=== PATIENT | male | born 2000 | race Asian ===

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

== ENCOUNTER → 2022-03-27 10:51 | Outpatient (CLI) | payer OTHER, SELFPAY | PROVIDERS: PCP Family Medicine; Visit Provider Student in an Organized Health Care Education/Training Program | DX: J02.9 Acute pharyngitis, unspecified (principal) | CPT/HCPCS: 87070 ==

== ENCOUNTER → 2022-03-31 16:24 | Outpatient (CLI) | payer OTHER, SELFPAY | PROVIDERS: PCP Family Medicine; Visit Provider Nurse Practitioner Family | DX: B96.89 Other specified bacterial agents as the cause of diseases classified elsewhere (principal); J03.80 Acute tonsillitis due to other specified organisms | CPT/HCPCS: 87070 ==

== ENCOUNTER → 2022-04-12 15:53 | Outpatient (CLI) | payer OTHER, SELFPAY | PROVIDERS: PCP Family Medicine; Visit Provider Nurse Practitioner Family | DX: J03.80 Acute tonsillitis due to other specified organisms (principal); B96.89 Other specified bacterial agents as the cause of diseases classified elsewhere | CPT/HCPCS: 87070 ==

== ENCOUNTER 2022-05-01 15:00 | Emergency (ER) | payer OTHER, SELFPAY ==
[2022-05-01 15:06] VITALS: BP 128/61; PULSE 98; RESP 19; TEMP 36.9; O2SAT 98; BMI 19.6
--- NOTE | 2022-05-01 15:20 | DI.CT.S_ITS ---
PROCEDURE: CT SOFT TISSUE NECK W CON INDICATIONS: c/f deep neck space infection, rt lymphadenopathy resistant TECHNIQUE: After the administration of intravenous contrast, 3.0 mm axial sections acquired from the sella to the aortic arch. 3 mm thick coronal and sagittal reformats were generated. For radiation dose reduction, the following was used: automated exposure control. COMPARISON: None. FINDINGS: Skull Base: The visualized intracranial contents, skull, and orbits are unremarkable. Visualized paranasal sinuses are clear. Pharynx and Larynx: Right peritonsillar abscess measures 1.2 x 0.9 x 2.1 cm is ill-defined and thick walled. No airway compromise. Lymph Nodes: Right-sided reactive deep cervical adenopathy measures up to 1.3 cm Vasculature: Unremarkable. Submandibular and Parotid Glands: Normal in size and attenuation. Thyroid: Unremarkable. No enlarged or calcified nodules. Bones: No acute fracture. No osteolytic or blastic lesion is evident. Normal bone mineralization. Lung Apices: The visualized lung apices are clear. IMPRESSION: 1. Right peritonsillar abscess measures 1.2 x 2.1 cm with associated edematous changes and reactive adenopathy Approved by: Bon Sharif M.D. on 05/01/2022 at 17:09
[2022-05-01 15:56] LABS: Add Manual Diff / Slide Review NO; Basophils Absolute Auto 0 /uL (0-100); Basophils Percent Auto 0.2 % (0-2); Eosinophils Absolute Auto 100 /uL (0-450); Eosinophils Percent Auto 0.6 % (2-4); Hematocrit 48.2 % (41-53); Hemoglobin 16.2 g/dL (13.5-17.5); Lymphocytes Absolute Auto 1300 /uL (1100-4500); Lymphocytes Percent Auto 9.4 % (25-40); Mean Corpuscular HGB Conc 33.7 % (30-36); Mean Corpuscular Hemoglobin 28.9 PG (26-34); Mean Corpuscular Volume 85.8 fL (80-100); Monocytes Absolute Auto 800 /uL (0-900); Neutrophils Absolute Auto 11400 /uL (1500-7000); Neutrophils Percent Auto 83.8 % (50-75); Platelet Count 179 X10^3/uL (150-400); Red Blood Cell Count 5.62 X10^6/uL (4.5-5.9); Red Cell Distribution Width 13.1 % (11.6-14.8); White Blood Cell Count 13.6 X10^3/uL (4.5-11.0)
[2022-05-01] MEDS: SODIUM CHLORIDE 0.9% 1,000 ML 1000 ML IV (15:56)
[2022-05-01] MEDS: KETOROLAC 30 MG/ML VIAL IM (15:57)
[2022-05-01] MEDS: DEXAMETHASONE 4 MG/ML VIAL 16 MG IV (15:57)
[2022-05-01 16:07] LABS: Alanine Aminotransferase 24 IU/L (<50); Albumin 4.7 g/dL (3.5-5.0); Albumin Globulin Ratio 1.3 (1.0-2.8); Alkaline Phosphatase 61 U/L (38-126); Aspartate Aminotransferase 33 IU/L (17-59); BUN Creatinine Ratio 17.5 (6-22); Bilirubin Total 1.7 mg/dL (0.2-1.3); Blood Urea Nitrogen 11 mg/dL (9-20); Calcium 9.4 mg/dL (8.4-10.2); Carbon Dioxide 26 mmol/L (22-32); Chloride 99 mmol/L (98-107); Estimated Glomerular Filt Rate > 60 mL/min (>60); Globulin 3.7 g/dL (1.7-4.1); Glucose 101 mg/dL (70-100); HEMOLYSIS 47 (0-50); Potassium 4.1 mmol/L (3.4-5.1); Sodium 136 mmol/L (137-145); Total Protein 8.4 g/dL (6.3-8.2)
[2022-05-01 16:09] VITALS: BP 130/77; PULSE 78; RESP 14; O2SAT 98
[2022-05-01 16:39] LABS: Procalcitonin 0.05 ng/mL (<0.5)
--- NOTE | 2022-05-01 16:51 | ED_ITS ---
HPI - URI/Sore Throat <Elise Stratton, [facility] - Last Filed: 05/01/22 20:23> General Chief Complaint: Upper Respiratory Symptoms Stated Complaint: infection in tonsils, worsening Time Seen by Provider: 05/01/22 15:20 Source: patient and family Mode of arrival: Family Vehicle History of Present Illness HPI Narrative: This is a 22-year-old male who presents to the emergency department with ongoing throat infection since March 27 and has completed 3 courses of antibiotics and returns today with worsening more than before, especially on the right tonsil. Patient has completed 1st a prescription of Augmentin that did not do anything starting on the , later returned to the walk-in clinic on 03/31/2022 and given ceftriaxone 1 g total IM, then started cefdinir 300 mg b.i.d. times 10 days, referral to ENT was submitted, patient had a follow-up appointment with ENT scheduled for May 18. Patient states that he saw his primary care provider for a follow-up 5 days later who told him that if he was improved then he could start the medication so they did. States that after this, his symptoms returned almost immediately and he was restarted on cefdinir which he has completed 10 days of Patient presents to the walk-in clinic and completed 5 days of this and saw his primary care provider for recheck, he states that the primary care provider told him to discontinue this if his symptoms improved so he did. He then goes to the walk-in clinic on 04/12/2022 and was prescribed 10 days of cefdinir. Related Data Home Medications Medication Instructions Recorded Confirmed fluticasone propionate 50 1 spray intranasal DAILY 07/06/17 04/12/22 mcg/actuation nasal spray,suspension Previous Rx's Medication Instructions Recorded cefdinir 300 mg capsule 300 mg PO BID #20 caps 04/12/22 benzocaine 15 mg-menthol 3.6 mg 1 liliana mucous membrane Q2-4H PRN 05/01/22 lozenges (Cepacol Sore Throat pain #16 ea (benzocaine-menthol)) clindamycin HCl 150 mg capsule 450 mg PO TID 10 days #90 caps 05/01/22 (Cleocin HCl) ibuprofen 600 mg tablet 600 mg PO Q6H PRN fever or pain 05/01/22 #30 tabs prednisone 20 mg tablet 20 mg PO DAILY 5 days #5 tabs 05/01/22 Allergies Allergy/AdvReac Type Severity Reaction Status Date / Time No Known Drug Allergies Allergy Verified 04/12/22 15:29 Review of Systems <DAYANA Toscano - Last Filed: 05/01/22 20:23> Review of Systems ROS Unobtainable: All systems reviewed & are unremarkable except as noted in HPI and below Patient History <DAYANA Toscano - Last Filed: 05/01/22 20:23> Medical History Immunizations up to date in pediatric patient Seasonal allergies Social History Smoking Status: Never smoker Smoking Status: Never smoker alcohol intake frequency: 0-2 drinks per day Substance Use Type: does not use Exam <DAYANA Toscano - Last Filed: 05/01/22 20:23> Narrative Exam Narrative: Reviewed vitals signs and nursing notes. General: cooperative, comfortable, in no acute distress, well groomed HEENT: symmetrical facial expressions, moist mucous membranes, posterior pharynx with 4+ lymphadenopathy bilaterally with greater swelling on right than left, uvula appears to be midline but pointing towards the left, tonsillar exudate especially on the right, mild odorous breath, anterior cervical lymphadenopathy, no submental tenderness, neck is supple, patient is able turn his head to the left and right without rigidity, no meningeal signs, no stridor Cardiovascular: Initially tachycardic with regular rhythm, no longer and now with regular rate and rhythm, no peripheral edema, warm extremities Respiratory: normal effort, able to speak in complete sentences, without wheezing, stridor, or abnormal breath sounds. No retractions or tachypnea. GI: abdomen soft, nontender to palpation, nondistended, without masses, rebound tenderness or exquisite tenderness with exam. MSK: moves all extremities, neurovascularly intact, no weakness, normal tone Skin: brisk capillary refill, without pallor or erythema Neuro: normal speech and cognition, A&O x3, ambulatory, clear speech Psych: mental status is grossly normal, congruent mood, normal affect, pleasant and cooperative Initial Vital Signs Initial Vital Signs: Vital Signs Temperature 98.5 F 05/01/22 15:06 Pulse Rate 98 H 05/01/22 15:06 Respiratory Rate 19 05/01/22 15:06 Blood Pressure 128/61 05/01/22 15:06 Pulse Oximetry 98 05/01/22 15:06 Oxygen Delivery Method 05/01/22 15:06 <Eduardo Gurrola DO - Last Filed: 05/02/22 04:24> Initial Vital Signs Initial Vital Signs: Vital Signs Temperature 98.5 F 05/01/22 15:06 Pulse Rate 98 H 05/01/22 15:06 Respiratory Rate 19 05/01/22 15:06 Blood Pressure 128/61 05/01/22 15:06 Pulse Oximetry 98 05/01/22 15:06 Oxygen Delivery Method 05/01/22 15:06 Course <DAYANA Toscano - Last Filed: 05/01/22 20:23> Orders Ordered: Discontinued Medications Benzocaine/Butamben/Tetracaine HCl (Tetracaine/Benzocaine/Butamben (Cetacaine) Bottle) 1 spray TOP NOW ONE Stop: 05/01/22 18:32 Last Admin: 05/01/22 19:23 Dose: 1 spray Documented By: AT Clindamycin HCl (Clindamycin 150 Mg Capsule) 450 mg PO NOW ONE Stop: 05/01/22 18:43 Last Admin: 05/01/22 19:23 Dose: 450 mg Documented By: AT Dexamethasone (Dexamethasone 4 Mg/Ml Vial) 16 mg IV NOW ONE Stop: 05/01/22 15:21 Last Admin: 05/01/22 15:57 Dose: 16 mg Documented By: ALYSSA Sodium Chloride (Normal Saline 0.9%) 1,000 mls @ 1,000 mls/hr IV BOLUS ONE Stop: 05/01/22 16:49 Last Infusion: 05/01/22 17:02 Dose: 0 mls/hr Documented By: Admin: 05/01/22 15:56 Dose: 1,000 mls/hr Documented By: ALYSSA Ampicillin Sodium/Sulbactam (Sodium 3 gm/ Sodium Chloride) 100 mls @ 200 mls/hr IV NOW ONE Stop: 05/01/22 16:52 Last Infusion: 05/01/22 17:57 Dose: 0 mls/hr Documented By: Admin: 05/01/22 17:01 Dose: 200 mls/hr Documented By: AT Ketorolac Tromethamine (Ketorolac 30 Mg/Ml Vial) 30 mg IM NOW ONE Stop: 05/01/22 15:21 Last Admin: 05/01/22 15:57 Dose: 15 mg Documented By: ALYSSA Vital Signs Vital signs: Vital Signs - 8 hr 05/01/22 15:06 05/01/22 16:09 05/01/22 17:30 Temperature 98.5 F Pulse Rate 98 H 78 104 H Respiratory Rate 19 14 16 Blood Pressure 128/61 130/77 116/69 Pulse Oximetry 98 98 Oxygen Delivery Method Room Air Room Air 05/01/22 18:05 05/01/22 19:25 Temperature Pulse Rate 100 H 88 Respiratory Rate 16 12 Blood Pressure 114/78 122/73 Pulse Oximetry 99 98 Oxygen Delivery Method Room Air <Eduardo Gurrola DO - Last Filed: 05/02/22 04:24> Orders Ordered: Discontinued Medications Benzocaine/Butamben/Tetracaine HCl (Tetracaine/Benzocaine/Butamben (Cetacaine) Bottle) 1 spray TOP NOW ONE Stop: 05/01/22 18:32 Last Admin: 05/01/22 19:23 Dose: 1 spray Documented By: AT Clindamycin HCl (Clindamycin 150 Mg Capsule) 450 mg PO NOW ONE Stop: 05/01/22 18:43 Last Admin: 05/01/22 19:23 Dose: 450 mg Documented By: AT Dexamethasone (Dexamethasone 4 Mg/Ml Vial) 16 mg IV NOW ONE Stop: 05/01/22 15:21 Last Admin: 05/01/22 15:57 Dose: 16 mg Documented By: ALYSSA Sodium Chloride (Normal Saline 0.9%) 1,000 mls @ 1,000 mls/hr IV BOLUS ONE Stop: 05/01/22 16:49 Last Infusion: 05/01/22 17:02 Dose: 0 mls/hr Documented By: Admin: 05/01/22 15:56 Dose: 1,000 mls/hr Documented By: ALYSSA Ampicillin Sodium/Sulbactam (Sodium 3 gm/ Sodium Chloride) 100 mls @ 200 mls/hr IV NOW ONE Stop: 05/01/22 16:52 Last Infusion: 02/26/23 17:57 Dose: 0 mls/hr Documented By: Admin: 05/01/22 17:01 Dose: 200 mls/hr Documented By: AT Ketorolac Tromethamine (Ketorolac 30 Mg/Ml Vial) 30 mg IM NOW ONE Stop: 05/01/22 15:21 Last Admin: 05/01/22 15:57 Dose: 15 mg Documented By: ALYSSA Vital Signs Vital signs: Vital Signs - 8 hr 05/01/22 15:06 05/01/22 16:09 05/01/22 17:30 Temperature 98.5 F Pulse Rate 98 H 78 104 H Respiratory Rate 19 14 16 Blood Pressure 128/61 130/77 116/69 Pulse Oximetry 98 98 Oxygen Delivery Method Room Air Room Air 05/01/22 18:05 05/01/22 19:25 Temperature Pulse Rate 100 H 88 Respiratory Rate 16 12 Blood Pressure 114/78 122/73 Pulse Oximetry 99 98 Oxygen Delivery Method Room Air MDM - URI/Sore Throat <NIRAJ ToscanoP - Last Filed: 05/01/22 20:23> Lab Data 05/01/22 15:39 05/01/22 15:39 Labs: Lab Results 05/01/22 05/01/22 05/01/22 Range/Units 15:39 15:39 15:39 WBC 13.6 H (4.5-11.0) X10^3/uL RBC 5.62 (4.5-5.9) X10^6/uL Hgb 16.2 (13.5-17.5) g/dL Hct 48.2 (41-53) % MCV 85.8 (80-100) fL MCH 28.9 (26-34) PG MCHC 33.7 (30-36) % RDW 13.1 (11.6-14.8) % Plt Count 179 (150-400) X10^3/uL Neut % (Auto) 83.8 H (50-75) % Lymph % (Auto) 9.4 L (25-40) % Jennings % (Auto) 6.0 (3-14) % Eos % (Auto) 0.6 L (2-4) % Baso % (Auto) 0.2 (0-2) % Neut # (Auto) 14137 H (6301-7394) /uL Lymph # (Auto) 1300 (4569-7948) /uL Jennings # (Auto) 800 (0-900) /uL Eos # (Auto) 100 (0-450) /uL Baso # (Auto) 0 (0-100) /uL Sodium (137-145) mmol/L Potassium (3.4-5.1) mmol/L Chloride (98-107) mmol/L Carbon Dioxide (22-32) mmol/L BUN (9-20) mg/dL Creatinine (0.66-1.25) mg/dL Estimated GFR (>60) mL/min BUN/Creatinine Ratio (6-22) Glucose (70-100) mg/dL Lactate 1.0 (0.7-2.1) mmol/L Calcium (8.4-10.2) mg/dL Total Bilirubin (0.2-1.3) mg/dL AST (17-59) IU/L ALT (<50) IU/L Alkaline Phosphatase (38-126) U/L Total Protein (6.3-8.2) g/dL Albumin (3.5-5.0) g/dL Globulin (1.7-4.1) g/dL Albumin/Globulin Ratio (1.0-2.8) Procalcitonin 0.05 (<0.5) ng/mL Monoscreen (Negative) 05/01/22 05/01/22 Range/Units 15:39 15:39 WBC (4.5-11.0) X10^3/uL RBC (4.5-5.9) X10^6/uL Hgb (13.5-17.5) g/dL Hct (41-53) % MCV (80-100) fL MCH (26-34) PG MCHC (30-36) % RDW (11.6-14.8) % Plt Count (150-400) X10^3/uL Neut % (Auto) (50-75) % Lymph % (Auto) (25-40) % Jennings % (Auto) (3-14) % Eos % (Auto) (2-4) % Baso % (Auto) (0-2) % Neut # (Auto) (5449-7272) /uL Lymph # (Auto) (5540-9472) /uL Jennings # (Auto) (0-900) /uL Eos # (Auto) (0-450) /uL Baso # (Auto) (0-100) /uL Sodium 136 L (137-145) mmol/L Potassium 4.1 (3.4-5.1) mmol/L Chloride 99 (98-107) mmol/L Carbon Dioxide 26 (22-32) mmol/L BUN 11 (9-20) mg/dL Creatinine 0.63 L (0.66-1.25) mg/dL Estimated GFR > 60 (>60) mL/min BUN/Creatinine Ratio 17.5 (6-22) Glucose 101 H (70-100) mg/dL Lactate (0.7-2.1) mmol/L Calcium 9.4 (8.4-10.2) mg/dL Total Bilirubin 1.7 H (0.2-1.3) mg/dL AST 33 (17-59) IU/L ALT 24 (<50) IU/L Alkaline Phosphatase 61 (38-126) U/L Total Protein 8.4 H (6.3-8.2) g/dL Albumin 4.7 (3.5-5.0) g/dL Globulin 3.7 (1.7-4.1) g/dL Albumin/Globulin Ratio 1.3 (1.0-2.8) Procalcitonin (<0.5) ng/mL Monoscreen Negative (Negative) Imaging Data CT soft tissue Neck: Radiologist's Impression: [address] [address] [address] Scan Report Signed Patient: Deangelo Sarmiento MR#: [id number] : 2000 Acct:[id number] Age/Sex: 22 / M Date of Service: 05/01/22 Loc: ED Accession Number: [id number] ?? Procedure: CT soft tissue neck w con Ordering Provider: Elise Stratton PROCEDURE:? CT SOFT TISSUE NECK W CON ? INDICATIONS:? c/f deep neck space infection, rt lymphadenopathy resistant ? TECHNIQUE:? After the administration of intravenous contrast, 3.0 mm axial sections acquired from the sella to the aortic arch.? 3 mm thick coronal and sagittal reformats were generated.? For radiation dose reduction, the following was used:? automated exposure control.? ? COMPARISON:? None. ? FINDINGS: ? Skull Base: The visualized intracranial contents, skull, and orbits are unremarkable.? Visualized paranasal sinuses are clear. ? Pharynx and Larynx:? Right peritonsillar abscess measures 1.2 x 0.9 x 2.1 cm is ill-defined and thick walled.? No airway compromise. ? Lymph Nodes:? Right-sided reactive deep cervical adenopathy measures up to 1.3 cm ? Vasculature:? Unremarkable. ? Submandibular and Parotid Glands:? Normal in size and attenuation. ? Thyroid:? Unremarkable.? No enlarged or calcified nodules. ? Bones:? No acute fracture.? No osteolytic or blastic lesion is evident. Normal bone mineralization. ? Lung Apices:? The visualized lung apices are clear. ? IMPRESSION: ? 1. Right peritonsillar abscess measures 1.2 x 2.1 cm with associated edematous changes and reactive adenopathy ? ? Approved by: Bon Sharif M.D. on 05/01/2022 at 17:09? MDM Narrative Medical decision making narrative: Chief Complaint: Worsening throat infection Independent historian: Patient and his father Differential diagnoses include but are not limited to: Bacterial pharyngitis, RPA, peritonsillar abscess, mono, Vladimir angina/parotid space infection deep neck space infection, I have independently reviewed the patient's vital signs and nursing notes as well as prior records if available. Pertinent lab findings reviewed: Leukocytosis of 13.6 with a left shift, normal creatinine, total bilirubin mildly elevated at 1.7 and 1 L of IV fluid was g iven, procalcitonin of 0.05, mono screen is negative, throat culture is pending Pertinent Imaging reviewed: CT soft tissue neck Course of care: Ordered lab work while patient was in triage, he has normal phonation, can tolerate his secretions however his tonsils are very large, uvula is hanging and sticking to them, there is exudate present, throat culture obtained and is pending, ordered ENT dose dexamethasone at 16 mg IV orally, also ordered for him fluid bolus, Toradol, CT soft tissue neck, he has full mobility of his neck without rigidity, meningeal signs, can turn his head from left to right IV fluid bolus ordered at 1550, ampicillin 3 g IV ordered when his lab work came back at 16:51, also gave him Toradol 15 mg IV, dexamethasone 16 mg given p.o., 1818 CT result came in showing right retropharyngeal abscess measuring 1.2 x 2.1 cm with associated edematous changes and reactive adenopathy which is consistent with his posterior pharynx exam and anterior cervical exam. The patient was seen by Dr. Gurrola as well as myself and will proceed with needle aspiration of the abscess after benzocaine/butamben/ tetracaine spray Procedure was completed by Dr. Gurrola with my assistance, no significant purulence drainage removed with needle aspiration, patient tolerated this well with Cetacaine spray and local injection of 1% lidocaine with epinephrine. No airway concerns at this time, patient is protecting his airway, he is able to swallow and manage his secretions, without stridor, he does have mild anterior cervical lymphadenopathy on the right. Patient feels much better than he did when he came in, states that the swelling has already gone down quite a bit. He did not swallow much if any blood, a suction during the procedure to avoid this. He is encouraged to follow-up with ENT bianca tomorrow for urgent follow-up. I will forward the note to Dr. Garrett from ENT. Encourage patient to return to the emergency department for any acute change or worsening, he is nontoxic appearing, his dad is here with him and offers good support. They will follow-up accordingly, since patient has been on cefdinir for his unless he has, opted to treat him with clindamycin 450 mg t.i. d. times 10 days. He was also given Cepacol lozenges and ibuprofen with prednisone 20 mg daily x5 days. Social considerations that may affect disposition: none Questions are addressed and there is agreement with the plan and for follow-up. Patient is appropriate for outpatient management. MIPS: This encounter doesn't have any diagnosis' associated with MIPS criteria. <Eduardo Gurrola, DO - Last Filed: 05/02/22 04:24> Lab Data Labs: Lab Results 05/01/22 05/01/22 05/01/22 Range/Units 15:39 15:39 15:39 WBC 13.6 H (4.5-11.0) X10^3/uL RBC 5.62 (4.5-5.9) X10^6/uL Hgb 16.2 (13.5-17.5) g/dL Hct 48.2 (41-53) % MCV 85.8 (80-100) fL MCH 28.9 (26-34) PG MCHC 33.7 (30-36) % RDW 13.1 (11.6-14.8) % Plt Count 179 (150-400) X10^3/uL Neut % (Auto) 83.8 H (50-75) % Lymph % (Auto) 9.4 L (25-40) % Jennings % (Auto) 6.0 (3-14) % Eos % (Auto) 0.6 L (2-4) % Baso % (Auto) 0.2 (0-2) % Neut # (Auto) 77182 H (1227-9845) /uL Lymph # (Auto) 1300 (7395-7458) /uL Jennings # (Auto) 800 (0-900) /uL Eos # (Auto) 100 (0-450) /uL Baso # (Auto) 0 (0-100) /uL Sodium (137-145) mmol/L Potassium (3.4-5.1) mmol/L Chloride (98-107) mmol/L Carbon Dioxide (22-32) mmol/L BUN (9-20) mg/dL Creatinine (0.66-1.25) mg/dL Estimated GFR (>60) mL/min BUN/Creatinine Ratio (6-22) Glucose (70-100) mg/dL Lactate 1.0 (0.7-2.1) mmol/L Calcium (8.4-10.2) mg/dL Total Bilirubin (0.2-1.3) mg/dL AST (17-59) IU/L ALT (<50) IU/L Alkaline Phosphatase (38-126) U/L Total Protein (6.3-8.2) g/dL Albumin (3.5-5.0) g/dL Globulin (1.7-4.1) g/dL Albumin/Globulin Ratio (1.0-2.8) Procalcitonin 0.05 (<0.5) ng/mL Monoscreen (Negative) 05/01/22 05/01/22 Range/Units 15:39 15:39 WBC (4.5-11.0) X10^3/uL RBC (4.5-5.9) X10^6/uL Hgb (13.5-17.5) g/dL Hct (41-53) % MCV (80-100) fL MCH (26-34) PG MCHC (30-36) % RDW (11.6-14.8) % Plt Count (150-400) X10^3/uL Neut % (Auto) (50-75) % Lymph % (Auto) (25-40) % Jennings % (Auto) (3-14) % Eos % (Auto) (2-4) % Baso % (Auto) (0-2) % Neut # (Auto) (3107-1200) /uL Lymph # (Auto) (0881-0939) /uL Jennings # (Auto) (0-900) /uL Eos # (Auto) (0-450) /uL Baso # (Auto) (0-100) /uL Sodium 136 L (137-145) mmol/L Potassium 4.1 (3.4-5.1) mmol/L Chloride 99 (98-107) mmol/L Carbon Dioxide 26 (22-32) mmol/L BUN 11 (9-20) mg/dL Creatinine 0.63 L (0.66-1.25) mg/dL Estimated GFR > 60 (>60) mL/min BUN/Creatinine Ratio 17.5 (6-22) Glucose 101 H (70-100) mg/dL Lactate (0.7-2.1) mmol/L Calcium 9.4 (8.4-10.2) mg/dL Total Bilirubin 1.7 H (0.2-1.3) mg/dL AST 33 (17-59) IU/L ALT 24 (<50) IU/L Alkaline Phosphatase 61 (38-126) U/L Total Protein 8.4 H (6.3-8.2) g/dL Albumin 4.7 (3.5-5.0) g/dL Globulin 3.7 (1.7-4.1) g/dL Albumin/Globulin Ratio 1.3 (1.0-2.8) Procalcitonin (<0.5) ng/mL Monoscreen Negative (Negative) Discharge Plan Departure Patient Disposition: Home Clinical Impression: Abscess, peritonsillar Instructions: Peritonsillar Abscess Activity Restrictions/Additional Instructions: *You have been diagnosed with a peritonsillar abscess measuring 1.2 x 2.1 cm with inflammation and related to this. Please take this antibiotic 3 times a day for 10 days and schedule urgent follow-up with Dr. Garrett from [facility]. I will send him this note. If he has difficulty breathing, swallowing, keeping anything down, please send him in for another evaluation. Thank you for trusting us with his care, thank you for coming in early, and I hope that this does not recur. Take ibuprofen 600 mg this will help swelling pain, to have some sort of food in her stomach with all medications so that you do not get an ulcer or feel nauseated related to this. We attempted drainage of this, have a culture pending of his throat, but no significant pus drainage came out of this abscess. *What to do: *Please continue to take your regular medications as directed. [ x] New medication prescriptions sent to your pharmacy: [ [facility]] (okay to pick this up tomorrow) [ ] New medication written as a paper prescription [ ] No new medications given *Please follow up with your primary care provider in 2-3 days, call for an shawn ointment. Let them know you were seen in the Emergency Department and that we asked that you be seen for follow-up. We will electronically transmit a record of today's note if your PCP is in our system *If you do not have a primary care provider please contact [phone] to establish care with one of the [facility] primary care providers. *Return to Emergency Department if you should have any new, worsening, or concerning symptoms, such as [fever greater than 101F, chills, worsening pain, persistent vomiting or other bothersome symptoms]. Prescriptions: New clindamycin HCl [Cleocin HCl] 150 mg capsule 450 mg PO TID 10 Days Qty: 90 0RF Cepacol Sore Throat (charlotte-men) 15-3.6 mg lozenge 1 liliana mucous membrane Q2-4H PRN (Reason: pain) Qty: 16 0RF prednisone 20 mg tablet 20 mg PO DAILY 5 Days Qty: 5 0RF ibuprofen 600 mg tablet 600 mg PO Q6H PRN (Reason: fever or pain) Qty: 30 0RF No Action fluticasone propionate 50 mcg/actuation spray,suspension 1 spray NASAL DAILY flu vacc [id number] 6mos up(PF) 60 mcg (15 mcg x 4)/0.5 mL suspension 0.5 ml IM ONCE Qty: 0.5 0RF cefdinir 300 mg capsule 300 mg PO BID Qty: 20 0RF Rx Instructions: Take one BID. consider probiotics Referrals: Ankush Garrett MD [Physician] - As soon as possible Riley Huerta MD [Primary Care Provider] - Stand Alone Forms: Patient Portal/API <Eduardo Gurrola DO - Last Filed: 05/02/22 04:24> Cosign ED Attending Cosignature Attestation: I was immediately available in the department for consultation. This documentation has been reviewed and I agree with assessment and plan. Supervised by Eduardo Gurrola DO
[2022-05-01] MEDS: AMPICILLIN/SULBACTAM 3 GM 3 GM in SODIUM CHLORIDE 0.9% 100 ML IV (17:01)
[2022-05-01 17:09] LABS: Monotest Negative (Negative)
[2022-05-01 17:30] VITALS: BP 116/69; PULSE 104; RESP 16
[2022-05-01 18:05] VITALS: BP 114/78; PULSE 100; RESP 16; O2SAT 99
[2022-05-01] MEDS: CLINDAMYCIN 150 MG CAPSULE 450 MG PO (19:23)
[2022-05-01] MEDS: TETRACAINE/BENZOCAINE/BUTAMBEN (CETACAINE) BOTTLE 1 SPRAY TOP (19:23)
[2022-05-01 19:25] VITALS: BP 122/73; PULSE 88; RESP 12; O2SAT 98
== END 2022-05-01 19:28 | disposition home or self-care (01) ==
PROVIDERS: Emergency Provider Nurse Practitioner Critical Care Medicine; PCP Family Medicine
DX: J36 Peritonsillar abscess (principal)
CPT/HCPCS: 36415; 70491; 80053; 83605; 84145; 85025; 86318; 87070; 96361; 96365; 96372; 96375; 99284; J0295; J1100; J1885; Q9967